=== PATIENT | male | born 1960 | race Hispanic/Latino ===

== ENCOUNTER 2021-01-04 06:22 | Day surgery (SDC) | payer OTHER ==
[2020-12-30 10:05] LABS: BASOPHILS % (AUTO) 0.7 % (0.0-5.0); EOSINOPHILS % (AUTO) 3.4 % (0.0-8.0); LYMPHOCYTES % (AUTO) 22.4 % (21.0-51.0); MEAN CORPUSCULAR HEMOGLOBIN 31.7 pg (27.0-33.0); MEAN CORPUSCULAR HGB CONC 36.3 g/dL (32.0-36.0); MEAN CORPUSCULAR VOLUME 87.4 fL (79-99); MONOCYTES % (AUTO) 11.4 % (3.0-13.0); NEUTROPHILS % (AUTO) 61.7 % (40.0-77.0); PLATELET COUNT (AUTO) 152 K/uL (130-400); RED BLOOD CELL COUNT(AUTO) 5.49 MIL/uL (4.50-6.20); RED CELL DISTRIBUTION WIDTH 12.9 % (11.0-15.5); WHITE BLOOD COUNT (AUTO) 7.1 K/uL (4.8-10.8)
[2020-12-30 10:15] LABS: CREATININE 1.1 mg/dL (0.5-1.5); POTASSIUM 3.7 mmol/L (3.5-5.1)
[2021-01-03 10:24] VITALS: BP 166/77
[2021-01-04] VITALS (16 sets, daily range): BP systolic 118–159; BP diastolic 56–95
[~2021-01-04] VITALS: Ht 172.7 cm; Wt 119.6 kg
[~2021-01-04 06:22] MED LIST: HYDR25TA PO; IBUP-2077 PO; LOSA100T58 PO; METF-444 PO; TRAM50TA4 PO
[2021-01-04] MEDS ORDERED: SODIUM CHLORIDE 0.9% 1000ML 1,000 ML IV ONE (07:51)
[2021-01-04] MEDS: CEFAZOLIN SODIUM 1 GM VIAL IVP SCH ×2 (08:00→10:52)
[2021-01-04] MEDS ORDERED: SCOPOLAMINE HYDROBROMIDE 1 EACH ADH..PATCH TD ONE (08:12)
[2021-01-04] MEDS ORDERED: LIDOCAINE PF 100MG/5ML (2%) SYRINGE 5ML ONE (08:13)
[2021-01-04] MEDS ORDERED: PROPOFOL 10 MG/ML 20ML VIAL IV ONE ×2 (08:13→13:58)
[2021-01-04] MEDS ORDERED: ONDANSETRON HCL 4 MG/2 ML VIAL ONE ×2 (08:14→08:16)
[2021-01-04] MEDS ORDERED: ROCURONIUM 10MG/1ML SYR 10 MG/ML ML ONE ×2 (08:14→10:38)
[2021-01-04] MEDS ORDERED: MIDAZOLAM HCL 1 MG/ML 2ML VIAL ONE (08:15)
[2021-01-04] MEDS ORDERED: FENTANYL CITRATE PF 50 MCG/1 ML 5ML AMP IV ONE (08:15)
[2021-01-04] MEDS ORDERED: ROPIVACAINE 0.5% 5MG/ML 30ML IJ ONE (08:19)
[2021-01-04] MEDS ORDERED: KETAMINE 50MG/ML SYRINGE 50 MG/ML DISP.SYRIN IV ONE (08:19)
[2021-01-04] MEDS ORDERED: DEXAMETHASONE SOD PHOSPHATE 10MG/ML 1ML VIAL ONE (08:20)
[2021-01-04] MEDS ORDERED: EPINEPHRINE 1 MG/ML 30ML VIAL IJ ONE (09:12)
[2021-01-04] MEDS ORDERED: ERGO500093 PO (09:25)
[2021-01-04] MEDS ORDERED: NEOSTIGMINE 5MG/5ML SYR IV ONE (13:40)
[2021-01-04] MEDS ORDERED: GLYCOPYRROLATE 1 MG/5 ML SYRINGE ONE (13:40)
[2021-01-04] MEDS ORDERED: KETOROLAC 30MG VIAL (30MG/ML) ONE (13:42)
[2021-01-04] MEDS ORDERED: FENTANYL CITRATE PF 50 MCG/1 ML 2ML VIAL ONE (13:45)
[2021-01-04] MEDS ORDERED: CEPH500B PO (13:55)
[2021-01-04] MEDS ORDERED: HYDR-4060 PO (13:55)
== END 2021-01-04 16:00 | disposition home or self-care (01) ==
LOC: DAH 06:22
PROVIDERS: ATTEND Orthopaedic Surgery
DX: M75.112 Incomplete rotator cuff tear or rupture of left shoulder, not specified as traumatic (principal); Z20.822 Contact with and (suspected) exposure to COVID-19; S43.432A Superior glenoid labrum lesion of left shoulder, initial encounter; M75.52 Bursitis of left shoulder; M65.812 Other synovitis and tenosynovitis, left shoulder; I10 Essential (primary) hypertension; E78.00 Pure hypercholesterolemia, unspecified; F32.9 Major depressive disorder, single episode, unspecified; G47.33 Obstructive sleep apnea (adult) (pediatric); G47.30 Sleep apnea, unspecified; E11.9 Type 2 diabetes mellitus without complications; E66.01 Morbid (severe) obesity due to excess calories; Z87.891 Personal history of nicotine dependence; Z90.89 Acquired absence of other organs; Z83.3 Family history of diabetes mellitus; Z72.89 Other problems related to lifestyle; Z79.899 Other long term (current) drug therapy; Z98.890 Other specified postprocedural states
CPT/HCPCS: 23412; 29807; 36415; 64415; 76942; 80048; 82948 ×2; 85025; 87635; A4213; A4215; A4221; A4222; A4223; A4565; A4600; A4615; A4649 ×6; A4663; A5120; A6204; C1713 ×3; C9803; G0168; J0171; J0690; J1100; J1885; J2001; J2250; J2405 ×2; J2704 ×2; J2710; J2795; J3010 ×2; J3490 ×2; J7030 ×3

== ENCOUNTER → 2021-03-14 | Outpatient (CLI) | payer OTHER ==
[~2021-03-14] MED LIST changes: +CEPH500B PO; +ERGO500093 PO; +HYDR-4060 PO; -TRAM50TA4 PO
== END | disposition home or self-care (01) ==
LOC: OIH 10:25
PROVIDERS: ATTEND Internal Medicine Cardiovascular Disease
DX: Z13.6 Encounter for screening for cardiovascular disorders (principal); I51.7 Cardiomegaly
CPT/HCPCS: 75571

== ENCOUNTER → 2021-04-19 | Outpatient (CLI) | payer OTHER | END | disposition home or self-care (01) | LOC: SHCH 08:07 | PROVIDERS: ATTEND Internal Medicine Cardiovascular Disease | DX: I10 Essential (primary) hypertension (principal) | CPT/HCPCS: 93306; 93356 ==

== ENCOUNTER 2021-05-11 00:54 | Emergency (ER) | payer OTHER ==
[~2021-05-11] VITALS: Ht 172.7 cm; Wt 116.6 kg
[2021-05-11 01:34] LABS: EOSINOPHILS % (AUTO) 2.9 % (0.0-8.0); LYMPHOCYTES % (AUTO) 26.6 % (21.0-51.0); MEAN CORPUSCULAR HEMOGLOBIN 32.1 pg (27.0-33.0); MEAN CORPUSCULAR HGB CONC 34.5 g/dL (32.0-36.0); MEAN CORPUSCULAR VOLUME 92.9 fL (79-99); MONOCYTES % (AUTO) 10.6 % (3.0-13.0); NEUTROPHILS % (AUTO) 58.6 % (40.0-77.0); PLATELET COUNT (AUTO) 144 K/uL (130-400); RED BLOOD CELL COUNT(AUTO) 4.52 MIL/uL (4.50-6.20); RED CELL DISTRIBUTION WIDTH 14.6 % (11.0-15.5); WHITE BLOOD COUNT (AUTO) 7.3 K/uL (4.8-10.8)
[2021-05-11 01:45] LABS: CREATININE 1.2 mg/dL (0.5-1.5); POTASSIUM 3.7 mmol/L (3.5-5.1)
[2021-05-11 01:50] LABS: ALBUMIN 3.8 g/dL (3.5-5.0); BILIRUBIN,TOTAL 0.9 mg/dL (0.2-1.0)
[2021-05-11] MEDS ORDERED: FUROSEMIDE 40MG VIAL IV ONE (04:00)
[2021-05-11 05:15] VITALS: BP 133/78
== END 2021-05-11 05:17 | disposition home or self-care (01) ==
LOC: EDH 00:54
DX: I11.0 Hypertensive heart disease with heart failure (principal); I50.9 Heart failure, unspecified; R60.0 Localized edema; Z20.822 Contact with and (suspected) exposure to COVID-19; Z79.1 Long term (current) use of non-steroidal anti-inflammatories (NSAID); Z79.84 Long term (current) use of oral hypoglycemic drugs; Z79.899 Other long term (current) drug therapy; Z98.890 Other specified postprocedural states
CPT/HCPCS: 36415; 71045; 80053; 83690; 83880; 84484 ×2; 85025; 87635; 93005; 96374; 99285; C9803; J1940

== ENCOUNTER 2021-06-12 02:28 | Emergency (ER) | payer OTHER ==
[~2021-06-12] VITALS: Ht 172.7 cm; Wt 88.0 kg
[2021-06-12 02:53] LABS: BASOPHILS % (AUTO) 0.7 % (0.0-5.0); EOSINOPHILS % (AUTO) 3.1 % (0.0-8.0); HEMATOCRIT 44.9 % (42-54); LYMPHOCYTES % (AUTO) 25.3 % (21.0-51.0); MEAN CORPUSCULAR HEMOGLOBIN 32.1 pg (27.0-33.0); MEAN CORPUSCULAR HGB CONC 34.5 g/dL (32.0-36.0); MONOCYTES % (AUTO) 12.2 % (3.0-13.0); NEUTROPHILS % (AUTO) 58.5 % (40.0-77.0); PLATELET COUNT (AUTO) 104 K/uL (130-400); RED BLOOD CELL COUNT(AUTO) 4.83 MIL/uL (4.50-6.20); RED CELL DISTRIBUTION WIDTH 13.7 % (11.0-15.5); WHITE BLOOD COUNT (AUTO) 8.3 K/uL (4.8-10.8)
[2021-06-12] MEDS ORDERED: METOCLOPRAMIDE 10 MG/2 ML VIAL IVP ONE (03:00)
[2021-06-12] MEDS ORDERED: PANTOPRAZOLE 40 MG/VIAL IVP ONE (03:00)
[2021-06-12] MEDS ORDERED: FAMOTIDINE 20MG VIAL IV ONE (03:00)
[2021-06-12] MEDS ORDERED: ASPIRIN 325MG TAB PO ONE (03:00)
[2021-06-12 03:05] LABS: CREATININE 1.2 mg/dL (0.5-1.5); POTASSIUM 3.5 mmol/L (3.5-5.1)
[2021-06-12 03:07] LABS: BILIRUBIN,TOTAL 0.6 mg/dL (0.2-1.0); TOTAL PROTEIN, SERUM 7.5 g/dL (6.0-8.3)
[2021-06-12 03:50] VITALS: BP 142/83
[2021-06-12] MEDS ORDERED: LIDOCAINE HCL 2% VISCOUS 15 ML UDCUP ONE (04:12)
[2021-06-12] MEDS ORDERED: MAG/ALUM/SIMETH 30 ML UDCUP ONE (04:13)
[2021-06-12] MEDS ORDERED: PANT40TA PO (04:21)
[2021-06-12] MEDS ORDERED: DICY20TA2 PO (04:21)
== END 2021-06-12 04:48 | disposition home or self-care (01) ==
LOC: EDH 02:28
DX: R10.13 Epigastric pain (principal); R07.89 Other chest pain; R11.10 Vomiting, unspecified; E11.9 Type 2 diabetes mellitus without complications; Z79.82 Long term (current) use of aspirin; Z79.899 Other long term (current) drug therapy; Z79.84 Long term (current) use of oral hypoglycemic drugs; Z79.1 Long term (current) use of non-steroidal anti-inflammatories (NSAID)
CPT/HCPCS: 36415; 71045; 80053; 83690; 83880; 84484; 85025; 93005; 96374; 96375; 99285; C9113; J2765; J3490

== ENCOUNTER 2021-11-28 14:37 | Observation (INO) | payer OTHER ==
[~2021-11-28] VITALS: Ht 172.7 cm; Wt 110.6 kg
[~2021-11-28 14:37] MED LIST changes: +DICY20TA2 PO; +PANT40TA PO
[2021-11-28] MEDS ORDERED: LACTATED RINGERS 1000ML 1,000 ML IV SCH (15:00)
[2021-11-28 15:28] LABS: BASOPHILS % (AUTO) 0.8 % (0.0-5.0); EOSINOPHILS % (AUTO) 2.3 % (0.0-8.0); HEMATOCRIT 46.7 % (42-54); LYMPHOCYTES % (AUTO) 22.9 % (21.0-51.0); MEAN CORPUSCULAR HEMOGLOBIN 32.4 pg (27.0-33.0); MEAN CORPUSCULAR HGB CONC 35.5 g/dL (32.0-36.0); MONOCYTES % (AUTO) 10.7 % (3.0-13.0); NEUTROPHILS % (AUTO) 63.1 % (40.0-77.0); PLATELET COUNT (AUTO) 110 K/uL (130-400); RED BLOOD CELL COUNT(AUTO) 5.13 MIL/uL (4.50-6.20); RED CELL DISTRIBUTION WIDTH 14.3 % (11.0-15.5); WHITE BLOOD COUNT (AUTO) 6.1 K/uL (4.8-10.8)
[2021-11-28 15:30] LABS: INR 1.02 (0.85-1.15); PROTHROMBIN TIME 11.1 SEC (9.6-11.6)
[2021-11-28 15:31] LABS: PARTIAL THROMBOPLASTIN TIME 26.1 SEC (26.3-35.5)
[2021-11-28 15:36] LABS: CREATININE 1.1 mg/dL (0.5-1.5); POTASSIUM 4.1 mmol/L (3.5-5.1)
[2021-11-28 15:39] LABS: ALBUMIN 3.9 g/dL (3.5-5.0); BILIRUBIN,TOTAL 0.9 mg/dL (0.2-1.0); MAGNESIUM 2.1 mg/dL (1.80-2.40); TOTAL PROTEIN, SERUM 7.3 g/dL (6.0-8.3)
[2021-11-28 15:48] LABS: B-TYPE NATRIURETIC PEPTIDE 481 pg/mL (0-100)
[2021-11-28 19:08] LABS: APPEARANCE,URINE Clear (CLEAR); BILIRUBIN,URINE Negative (NEGATIVE); COLOR,URINE Yellow (YELLOW); GLUCOSE, URINE (UA) Negative (NEGATIVE); KETONES,URINE Negative (NEGATIVE); LEUKOCYTE ESTERASE ,URINE Negative (NEGATIVE); NITRATE,URINE Negative (NEGATIVE); OCCULT BLOOD,URINE Negative (NEGATIVE); PH,URINE 7.5 (5.0-8.0); PROTEIN,URINE Negative (NEGATIVE)
[2021-11-28 19:18] LABS: AMPHET/METH SCREEN,URINE NEGATIVE (NEGATIVE); BARBITURATE SCREEN, URINE NEGATIVE (NEGATIVE); BENZODIAZEPINES SCREEN,URINE POSITIVE (NEGATIVE); CANNABINOID SCREEN,URINE NEGATIVE (NEGATIVE); COCAINE SCREEN,URINE NEGATIVE (NEGATIVE); OPIATE SCREEN,URINE NEGATIVE (NEGATIVE); PHENCYCLIDINE SCREEN,URINE NEGATIVE (NEGATIVE)
[2021-11-28] MEDS ORDERED: FURO40TA7 PO (20:19)
[2021-11-28] MEDS ORDERED: SACU1TAB4 PO (20:19)
[2021-11-28] MEDS ORDERED: ERGO500093 PO (20:19)
[2021-11-28] MEDS ORDERED: FURO20TA6 PO (20:19)
[2021-11-28] MEDS ORDERED: METF-444 PO (20:19)
[2021-11-28] MEDS ORDERED: SERT50TA PO (20:19)
[2021-11-28] MEDS ORDERED: SERT25TA PO (20:19)
[2021-11-28] MEDS ORDERED: METO100T14 PO (20:19)
[2021-11-28 23:50] VITALS: BP 140/88
[2021-11-29] MEDS ORDERED: ALPRAZOLAM 0.25 MG TABLET PO ONE (00:30)
[2021-11-29 04:01] VITALS: BP 116/73
[2021-11-29 06:41] LABS: BASOPHILS % (AUTO) 0.7 % (0.0-5.0); EOSINOPHILS % (AUTO) 4.6 % (0.0-8.0); HEMATOCRIT 45.4 % (42-54); LYMPHOCYTES % (AUTO) 30.5 % (21.0-51.0); MEAN CORPUSCULAR HEMOGLOBIN 32.5 pg (27.0-33.0); MEAN CORPUSCULAR HGB CONC 34.8 g/dL (32.0-36.0); MEAN CORPUSCULAR VOLUME 93.4 fL (79-99); MONOCYTES % (AUTO) 10.5 % (3.0-13.0); NEUTROPHILS % (AUTO) 53.5 % (40.0-77.0); PLATELET COUNT (AUTO) 109 K/uL (130-400); RED BLOOD CELL COUNT(AUTO) 4.86 MIL/uL (4.50-6.20); RED CELL DISTRIBUTION WIDTH 14.6 % (11.0-15.5); WHITE BLOOD COUNT (AUTO) 6.1 K/uL (4.8-10.8)
[2021-11-29 06:48] LABS: CREATININE 1.1 mg/dL (0.5-1.5); MAGNESIUM 2.2 mg/dL (1.80-2.40)
[2021-11-29 08:00] VITALS: BP 126/75
[2021-11-29] MEDS ORDERED: METOPROLOL TARTRATE 50 MG TAB PO SCH (09:00)
[2021-11-29] MEDS ORDERED: SERTRALINE HCL 50 MG TABLET PO SCH ×2 (09:00→21:00)
[2021-11-29] MEDS ORDERED: FUROSEMIDE 40 MG TABLET PO SCH (09:00)
[2021-11-29 11:41] VITALS: BP 134/85
[2021-11-29 15:52] VITALS: BP 119/68
[2021-11-29] MEDS ORDERED: VANCOMYCIN 1G/250ML KIT 250 ML IV PRN (17:30)
[2021-11-29 19:00] VITALS: BP 138/86
[2021-11-29] MEDS ORDERED: FUROSEMIDE 20 MG TABLET PO SCH (21:00)
[2021-11-30] VITALS (12 sets, daily range): BP systolic 102–138; BP diastolic 56–93
[2021-11-30 03:26] LABS: BASOPHILS % (AUTO) 0.6 % (0.0-5.0); EOSINOPHILS % (AUTO) 4.7 % (0.0-8.0); HEMATOCRIT 44.3 % (42-54); LYMPHOCYTES % (AUTO) 25.1 % (21.0-51.0); MEAN CORPUSCULAR HEMOGLOBIN 31.6 pg (27.0-33.0); MEAN CORPUSCULAR HGB CONC 34.8 g/dL (32.0-36.0); MONOCYTES % (AUTO) 10.9 % (3.0-13.0); NEUTROPHILS % (AUTO) 58.4 % (40.0-77.0); PLATELET COUNT (AUTO) 106 K/uL (130-400); RED BLOOD CELL COUNT(AUTO) 4.87 MIL/uL (4.50-6.20); RED CELL DISTRIBUTION WIDTH 14.2 % (11.0-15.5); WHITE BLOOD COUNT (AUTO) 6.4 K/uL (4.8-10.8)
[2021-11-30 03:33] LABS: CREATININE 1.1 mg/dL (0.5-1.5); MAGNESIUM 2.1 mg/dL (1.80-2.40); POTASSIUM 3.4 mmol/L (3.5-5.1)
[2021-11-30] MEDS ORDERED: BUPIVACAINE/PF 0.25% 30ML VIAL IJ ONE (07:46)
[2021-11-30] MEDS ORDERED: MEPERIDINE-PF 25 MG/ML SYG ONE ×3 (07:46→09:03)
[2021-11-30] MEDS ORDERED: CEFAZOLIN SODIUM 1 GM VIAL ONE (07:46)
[2021-11-30] MEDS ORDERED: LIDOCAINE HCL 1% MDV 50ML VIAL ONE (07:47)
[2021-11-30] MEDS ORDERED: MIDAZOLAM HCL 1 MG/ML 2ML VIAL ONE ×3 (07:47→09:04)
[2021-11-30] MEDS ORDERED: LIDOCAINE HCL-MPF 1% 2ML VIAL IV PRN (08:30)
[2021-11-30] MEDS ORDERED: POTASSIUM CHLORIDE 20MEQ/100ML 100 ML IV PRN (08:30)
[2021-11-30] MEDS ORDERED: IOHEXOL-350 50ML VIAL IV ONE (08:43)
[2021-11-30] MEDS ORDERED: DiphenhydrAMINE HCL 50 MG/ML VIAL ONE (09:04)
[2021-11-30] MEDS ORDERED: FENTANYL CITRATE PF 50 MCG/1 ML 2ML VIAL ONE (09:23)
[2021-11-30] MEDS ORDERED: ACETAMINOPHEN WITH CODEINE 1 TAB TAB PO PRN (10:30)
== END 2021-11-30 15:40 | disposition home or self-care (01) ==
LOC: EDH 14:37 → EDHIP 17:34 → 2AH 23:00
PROVIDERS: ADMIT Internal Medicine; ATTEND Internal Medicine
DX: I42.0 Dilated cardiomyopathy (principal); I11.0 Hypertensive heart disease with heart failure; I50.9 Heart failure, unspecified; R07.89 Other chest pain; I42.1 Obstructive hypertrophic cardiomyopathy; R55 Syncope and collapse; I42.2 Other hypertrophic cardiomyopathy; G47.33 Obstructive sleep apnea (adult) (pediatric); E78.5 Hyperlipidemia, unspecified; E11.9 Type 2 diabetes mellitus without complications; D69.6 Thrombocytopenia, unspecified; E05.90 Thyrotoxicosis, unspecified without thyrotoxic crisis or storm; E66.01 Morbid (severe) obesity due to excess calories; F43.10 Post-traumatic stress disorder, unspecified; F17.210 Nicotine dependence, cigarettes, uncomplicated; Z95.810 Presence of automatic (implantable) cardiac defibrillator; Z79.899 Other long term (current) drug therapy; Z98.890 Other specified postprocedural states; Z79.84 Long term (current) use of oral hypoglycemic drugs; Z98.41 Cataract extraction status, right eye; Z98.42 Cataract extraction status, left eye; Z68.37 Body mass index [BMI] 37.0-37.9, adult
CPT/HCPCS: 33249; 36415 ×3; 70450; 71045 ×2; 80048 ×2; 80053; 80061; 80305; 81003; 82550 ×2; 82948; 83735 ×3; 83874; 83880; 84145; 84146; 84443; 84484 ×3; 85025 ×3; 85378; 85610; 85730; 93005; 93640; 96360; 96361; 99291; C1721; C1895; C1896; G0378 ×43; J0690; J1200; J2175 ×2; J2250 ×3; J3010; J3370; J3490 ×2; J7120; Q9967; 33230; 99156; 99157

== ENCOUNTER → 2022-05-30 | Outpatient (CLI) | payer OTHER ==
[~2022-05-30] MED LIST changes: +FURO20TA6 PO; +FURO40TA7 PO; +METO100T14 PO; +SACU1TAB4 PO; +SERT25TA PO; +SERT50TA PO
== END | disposition home or self-care (01) ==
LOC: SHCH 14:13
PROVIDERS: ATTEND Internal Medicine Cardiovascular Disease
DX: I34.0 Nonrheumatic mitral (valve) insufficiency (principal); I42.0 Dilated cardiomyopathy
CPT/HCPCS: 93306

== ENCOUNTER 2022-06-18 01:13 | Emergency (ER) | payer OTHER ==
[~2022-06-18] VITALS: Ht 172.7 cm; Wt 117.5 kg
[2022-06-18] MEDS ORDERED: ACETAMINOPHEN 500 MG TABLET ONE (01:55)
[2022-06-18] MEDS ORDERED: ACETAMINOPHEN 500 MG TABLET PO ONE (02:00)
[2022-06-18 02:17] LABS: BASOPHILS % (AUTO) 0.4 % (0.0-5.0); EOSINOPHILS % (AUTO) 1.4 % (0.0-8.0); HEMATOCRIT 41.1 % (42-54); LYMPHOCYTES % (AUTO) 5.3 % (21.0-51.0); MEAN CORPUSCULAR HEMOGLOBIN 32.6 pg (27.0-33.0); MEAN CORPUSCULAR HGB CONC 35.5 g/dL (32.0-36.0); MEAN CORPUSCULAR VOLUME 91.7 fL (79-99); MONOCYTES % (AUTO) 10.6 % (3.0-13.0); NEUTROPHILS % (AUTO) 81.9 % (40.0-77.0); PLATELET COUNT (AUTO) 86 K/uL (130-400); RED BLOOD CELL COUNT(AUTO) 4.48 MIL/uL (4.50-6.20); RED CELL DISTRIBUTION WIDTH 13.2 % (11.0-15.5); WHITE BLOOD COUNT (AUTO) 7.7 K/uL (4.8-10.8)
[2022-06-18 02:23] LABS: CREATININE 1.2 mg/dL (0.5-1.5); POTASSIUM 4.4 mmol/L (3.5-5.1)
[2022-06-18 02:44] LABS: B-TYPE NATRIURETIC PEPTIDE 198 pg/mL (0-100)
[2022-06-18 03:00] VITALS: BP 131/67
[2022-06-18] MEDS ORDERED: OSELTAMIVIR PHOSPHATE 75 MG CAP PO SCH (03:00)
[2022-06-18] MEDS ORDERED: OSEL75 PO (03:06)
== END 2022-06-18 03:50 | disposition home or self-care (01) ==
LOC: EDH 01:13
DX: J10.1 Influenza due to other identified influenza virus with other respiratory manifestations (principal); R50.9 Fever, unspecified; Z20.822 Contact with and (suspected) exposure to COVID-19; E11.9 Type 2 diabetes mellitus without complications; I11.0 Hypertensive heart disease with heart failure; I50.9 Heart failure, unspecified; F43.10 Post-traumatic stress disorder, unspecified; Z79.899 Other long term (current) drug therapy; Z79.84 Long term (current) use of oral hypoglycemic drugs; Z90.89 Acquired absence of other organs; Z98.890 Other specified postprocedural states
CPT/HCPCS: 99285; 71045; 87635; 84484; 80048; 83880; 85025; 87804 ×2; 36415; 93005 ×2; C9803

== ENCOUNTER → 2023-05-03 | Outpatient (CLI) | payer OTHER ==
[~2023-05-03] MED LIST changes: -LOSA100T58 PO; +LOSA100T59 PO; +OSEL75 PO
== END | disposition home or self-care (01) ==
LOC: SHCH 10:24
PROVIDERS: ATTEND Internal Medicine Cardiovascular Disease
DX: I34.0 Nonrheumatic mitral (valve) insufficiency (principal); I51.7 Cardiomegaly
CPT/HCPCS: 93306

== ENCOUNTER → 2023-11-30 | Outpatient (CLI) | payer OTHER | END | disposition home or self-care (01) | LOC: SHCH 08:49 | PROVIDERS: ATTEND Internal Medicine Cardiovascular Disease | DX: I35.0 Nonrheumatic aortic (valve) stenosis (principal); I51.89 Other ill-defined heart diseases; I42.0 Dilated cardiomyopathy | CPT/HCPCS: 93306 ==

== ENCOUNTER 2024-01-06 10:06 | Emergency (ER) | payer OTHER ==
[~2024-01-06] VITALS: Ht 172.7 cm; Wt 111.1 kg
[2024-01-06 10:09] VITALS: BP 131/71; PULSE 64; RESP 16
[2024-01-06 10:34] LABS: BASOPHILS # (AUTO) 0.04 K/uL (0.00-0.20); BASOPHILS % (AUTO) 0.7 % (0.0-5.0); EOSINOPHILS # (AUTO) 0.18 K/uL (0.00-0.70); EOSINOPHILS % (AUTO) 3.2 % (0.0-8.0); HEMATOCRIT 47.1 % (42-54); IMMATURE GRANULOCYTE ABSOLUTE 0.02 K/uL (0-1); LYMPHOCYTES % (AUTO) 18.3 % (21.0-51.0); MEAN CORPUSCULAR HEMOGLOBIN 32.3 pg (27.0-33.0); MEAN CORPUSCULAR HGB CONC 35.7 g/dL (32.0-36.0); MEAN CORPUSCULAR VOLUME 90.6 fL (79-99); MONOCYTES # (AUTO) 0.5 K/uL (0.1-1.0); MONOCYTES % (AUTO) 8.3 % (3.0-13.0); NEUTROPHILS # (AUTO) 3.8 K/uL (1.8-7.7); NEUTROPHILS % (AUTO) 69.1 % (40.0-77.0); PLATELET COUNT (AUTO) 109 K/uL (130-400); RED CELL DISTRIBUTION WIDTH 13.2 % (11.0-15.5); WHITE BLOOD COUNT (AUTO) 5.6 K/uL (4.8-10.8)
[2024-01-06 10:45] LABS: ADD UA MICROSCOPIC YES; APPEARANCE,URINE CLEAR (CLEAR); BILIRUBIN,URINE NEGATIVE (NEGATIVE); COLOR,URINE COLORLESS (YELLOW); GLUCOSE, URINE (UA) >=1000 mg/dL (NEGATIVE); KETONES,URINE NEGATIVE (NEGATIVE); LEUKOCYTE ESTERASE ,URINE NEGATIVE Leu/uL (NEGATIVE); NITRATE,URINE NEGATIVE (NEGATIVE); OCCULT BLOOD,URINE NEGATIVE (NEGATIVE); PH,URINE 5.5 (5.0-8.0); PROTEIN,URINE NEGATIVE (NEGATIVE); UROBILINOGEN,URINE 0.2 mg/dL (0.2-1.0)
[2024-01-06 10:47] LABS: MUCUS,URINE RARE LPF (None Seen); RBC,URINE 0-1 /HPF (0-1); WBC,URINE 0-1 /HPF (0-1)
[2024-01-06 10:49] LABS: ALBUMIN 3.9 g/dL (3.5-5.0); BILIRUBIN,TOTAL 0.5 mg/dL (0.2-1.0); POTASSIUM 3.9 mmol/L (3.5-5.1); TOTAL PROTEIN, SERUM 7.3 g/dL (6.0-8.3)
== END 2024-01-06 11:42 | disposition left against medical advice (07) ==
LOC: EDH 10:06
DX: R06.02 Shortness of breath (principal); Z53.21 Procedure and treatment not carried out due to patient leaving prior to being seen by health care provider
CPT/HCPCS: 36415; 71045; 80053; 81001; 84484; 85025; 93005; 99281